=== PATIENT | female | born 2000 | race Caucasian/White ===

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

== ENCOUNTER 2021-08-18 00:20 | Emergency (ER) | payer SELFPAY ==
[~2021-08-18] VITALS: Ht 162.6 cm; Wt 86.0 kg
[2021-08-18 00:25] VITALS: BP 125/62
[2021-08-18] MEDS ORDERED: MAGNESIUM/ALUMINUM HYDROXIDE/SIMETHICONE 30ML UDC PO STA (01:34)
[2021-08-18] MEDS ORDERED: PANTOPRAZOLE SODIUM 40 MG/VIAL IV STA (01:34)
[2021-08-18] MEDS ORDERED: ONDANSETRON HCL 4MG/2ML INJ IV STA (01:34)
[2021-08-18] MEDS ORDERED: SODIUM CHLORIDE 0.9% 1,000 ML IV ONE (01:45)
== END 2021-08-18 01:45 | disposition left against medical advice (07) ==
LOC: ER 00:55
DX: Z53.21 Procedure and treatment not carried out due to patient leaving prior to being seen by health care provider (principal)
CPT/HCPCS: J7030